=== PATIENT | female | born 1985 | race African-American/Black ===

== ENCOUNTER 2020-08-23 08:06 | Emergency (ER) | payer OTHER, SELFPAY ==
--- NOTE | 2020-08-23 08:19 | ED.FEMALEGU ---
HPI - Female Genitourinary General Chief complaint: Urogenital-Female Stated complaint: uti Source: patient Mode of arrival: ambulatory Limitations: no limitations History of Present Illness HPI Narrative: Patient is a 35-year-old female who presents with urinary complaints. She reports lower abdominal pain/pelvic pain, dysuria and blood when wiping. She reports symptoms x1 day. She denies fever, nausea, vomiting, vaginal discharge or risk for STDs. She reports history of UTI in the past. She denies all other complaints at this time. MD elicited complaint: UTI Related Data Allergies Allergy/AdvReac Type Severity Reaction Status Date / Time latex Allergy Other Verified 08/23/20 08:19 Review of Systems Review of Systems: Narrative: CONSTITUTIONAL: Denies fever, chills, or sweats. EYES: Denies visual changes, redness, or discharge. ENT: Denies rhinorrhea, congestion, sore throat, or otalgia. CARDIOVASCULAR: Denies chest pain, palpitations, or edema. RESPIRATORY: Denies cough or dyspnea. GASTROINTESTINAL: Denies abdominal pain, nausea, vomiting, or diarrhea. GENITOURINARY: Reports dysuria and blood when wiping, reports pelvic pain. SKIN: Denies rash or itching. MUSCULOSKELETAL: Denies back pain, joint pain, or myalgia. NEUROLOGIC: Denies headache, numbness, dizziness, or weakness. PSYCHIATRIC: Denies anxiety or depression. [facility] Past Medical History Medical History Blood transfusion complicating After C section HTN (hypertension) Mild after 3 child per chart Large for gestational age fetus hemorrhage induced hypertension Surgical History Surgical History H/O: Family History Family History (Updated 08/23/20 @ 08:31 by ELIZ Da Silva) Other No significant family history Social History Social History Smoking status: Never smoker Alcohol intake: current Alcohol use details: Occasional Substance use: never Living arrangements: with family Gender identity (if verbalized by the patient): Female Comments At the time of signature, I have reviewed and agree with nursing past medical, surgical, social, and family history unless otherwise noted. Please see nursing chart for further information. There is no relevant family history pertinent to the presenting complaint. Exam Narrative: Exam Narrative: GENERAL: Well-appearing, well-nourished, and in no acute distress. HEAD: Normocephalic, atraumatic. EYES: EOMI. No redness or drainage. Conjunctiva are normal. ENT: Mucous membranes pink and moist. CHEST: No respiratory distress. HEART: Regular rate and rhythm. GI: Soft, nontender without rebound, or guarding. No distention. EXTREMITIES: Normal range of motion. No edema. SKIN: Warm, dry, no rash. NEURO: No focal deficits. Alert and oriented x3. Gait steady. PSYCH: Normal affect. No signs of depression or anxiety. Course Vital Signs Vital signs: Vital Signs Temperature 36.3 C L 08/23/20 08:24 Pulse Rate 75 08/23/20 08:24 Respiratory Rate 16 08/23/20 08:24 Blood Pressure 161/92 H 08/23/20 08:24 Pulse Oximetry 99 08/23/20 08:24 Temperature 36.3 C L 08/23/20 08:24 Pulse Rate 75 08/23/20 08:24 Respiratory Rate 16 08/23/20 08:24 Blood Pressure 161/92 H 08/23/20 08:24 Pulse Oximetry 99 08/23/20 08:24 Reviewed-patient is informed that they may have pre-hypertension or hypertension based on a blood pressure reading. I recommend the patient call the primary care provider listed on their discharge instructions or a physician of their choice this week to arrange follow-up for further evaluation of possible pre-hypertension or hypertension. MDM - Female Genitourinary MDM Narrative Medical decision making narrative: Patient's UA shows leukocytes, nitrates
[2020-08-23 08:24] VITALS: BP 161/92; PULSE 75; RESP 16; TEMP 36.3; O2SAT 99
== END 2020-08-23 08:42 | disposition home or self-care (01) ==
PROVIDERS: Emergency Provider Nurse Practitioner
DX: N39.0 Urinary tract infection, site not specified (principal); I10 Essential (primary) hypertension
CPT/HCPCS: 81003; 87077; 87086; 87088; 87186; 99213; G0463

== ENCOUNTER 2020-10-26 09:32 | Emergency (ER) | payer OTHER, SELFPAY ==
[2020-10-26 09:51] VITALS: BP 156/96; PULSE 68; RESP 16; TEMP 36.9; O2SAT 99
--- NOTE | 2020-10-26 09:51 | ED.FEMALEGU ---
HPI - Female Genitourinary General Chief complaint: Urogenital-Female Stated complaint: UTI Time Seen by Provider: 10/26/20 09:35 Source: patient Mode of arrival: ambulatory Limitations: no limitations History of Present Illness HPI Narrative: 35-year-old female presents to [facility] with complaints of urinary burning, frequency, urgency and hematuria for the past 3 days. Patient reports history of urinary tract infections. Patient's last UTI was in August and patient was treated with 5 days of Macrobid at that time. Patient reports that symptoms did completely resolve after completing antibiotic. Patient denies vaginal discharge, concern for STDs, fever, body aches, chills, nausea, vomiting, diarrhea, flank pain or abdominal pains. Last menstrual period was October 08 2020. MD elicited complaint: dysuria and UTI Onset (ago): day(s) (3) Vaginal discharge: none Vaginal bleeding: none Urinary symptoms: Dysuria, Urgency, Frequency and Hematuria Exacerbating factors: none Relieving factors: none Associated symptoms: denies other symptoms Treatment prior to arrival: none Patient : No Related Data Allergies Allergy/AdvReac Type Severity Reaction Status Date / Time latex Allergy Other Verified 10/26/20 09:47 Review of Systems Constitutional: Constitutional: Denies chills and Denies fatigue ENT: Denies dysphagia, Denies dizziness, Denies epistaxis and Denies sore throat Cardiovascular: Cardiovascular: Denies chest pain, Denies rapid heart rate and Denies slow heart rate Respiratory: Respiratory: Denies cough and Denies wheezing Gastrointestinal: Gastrointestinal: Denies abdominal pain, Denies constipation, Denies diarrhea, Denies nausea and Denies vomiting Genitourinary: Genitourinary: Denies abnormal vaginal bleeding, Reports hematuria, Reports nocturia, Denies genital lesions, Reports dysuria, Denies pelvic pain, Denies flank pain and Denies vaginal discharge Endocrine: Endocrine: Denies fatigue PMFSH Past Medical History Medical History Blood transfusion complicating After C section HTN (hypertension) Mild after 3 child per chart Large for gestational age fetus hemorrhage induced hypertension Surgical History Surgical History H/O: Family History Family History Other No significant family history Social History Social History Smoking status: Never smoker Alcohol intake: current Substance use: never Gender identity (if verbalized by the patient): Female Comments At time of signature, I agree with nursing past medical, surgical, social and family history. There is no relevant family history pertinent to the presenting complaint. Exam Const: General: no acute distress and alert Nutritional Appearance: well nourished Orientation/consciousness: patient oriented x3 Neck: Neck: normal visual inspection Resp: Effort & Inspection: normal respiratory effort, not labored and not tachypneic Auscultation: clear to auscultation bilaterally, no rales, no rhonchi and no wheezes Cardio: Rate: regular rate, not bradycardic and not tachycardic Rhythm: regular rhythm Heart sounds: no murmurs : General: Yes bladder normal to palpation and Yes no CVA tenderness Other: vaginal examination deferred. Back/Spine/Pelvis: Back: no CVA tenderness Skin: General skin exam: normal color Rashes: no rashes Wounds: no wounds Neuro: General: patient oriented x3 and moves all extremities Speech: normal speech Extrem: General: normal to inspection Psych: Mental Status: mental status grossly normal Affect: normal affect Attitude: cooperative Thought content: Yes Normal thought content present Judgement: Good judgement present (Psych) [facility]
== END 2020-10-26 10:00 | disposition home or self-care (01) ==
PROVIDERS: Emergency Provider Nurse Practitioner Family
DX: N30.01 Acute cystitis with hematuria (principal)
CPT/HCPCS: 81003; 87077; 87086; 87088; 87186; 99213; G0463

== ENCOUNTER 2021-01-19 08:07 | Emergency (ER) | payer OTHER, SELFPAY ==
[2021-01-19 08:16] VITALS: BP 161/94; PULSE 63; RESP 18; TEMP 36.8; O2SAT 100
--- NOTE | 2021-01-19 08:18 | PC.NURSE ---
While taking blood pressure patient would not keep arm still.
--- NOTE | 2021-01-19 08:44 | ED.URI ---
HPI - URI/Sore Throat General Chief Complaint: Upper Respiratory Infection Stated Complaint: sore throat Time Seen by Provider: 01/19/21 08:36 Source: patient and RN notes reviewed Mode of arrival: ambulatory Limitations: no limitations History of Present Illness HPI Narrative: Patient presents today complaint of sore throat since yesterday, right greater than left. Pain increases with swallowing. She currently rates pain 9/10 and has been taking Tylenol without much relief. Denies any additional symptoms to include cough, congestion, fever, shortness of breath, or difficulty swallowing. Denies any sick contacts. MD elicited complaint: sore throat Related Data Allergies Allergy/AdvReac Type Severity Reaction Status Date / Time latex Allergy Other Verified 10/26/20 09:47 Review of Systems Review of Systems: CONSTITUTIONAL: Denies body aches, fever, chills, or sweats. EYES: Denies visual changes, redness, or discharge. ENT: Denies rhinorrhea, congestion, or otalgia.+ Sore throat CARDIOVASCULAR: Denies chest pain, palpitations, or edema. RESPIRATORY: Denies cough or dyspnea. GASTROINTESTINAL: Denies abdominal pain, nausea, vomiting, or diarrhea. GENITOURINARY: Denies dysuria or hematuria. SKIN: Denies rash, itching, or wounds. MUSCULOSKELETAL: Denies back pain, joint pain, or myalgia. NEUROLOGIC: Denies headache, numbness, tingling, or weakness. PSYCH: Denies depression or anxiety. [facility] Past Medical History Medical History Blood transfusion complicating After C section HTN (hypertension) Mild after 3 child per chart Large for gestational age fetus hemorrhage induced hypertension Surgical History Surgical History H/O: Family History Family History Other No significant family history Social History Social History Smoking status: Never smoker Alcohol intake: current Alcohol use details: Occasional Substance use: never Gender identity (if verbalized by the patient): Female Comments At time of signature, I have reviewed and agree with nursing past medical, surgical, social and family history unless otherwise noted. Please see nursing chart for further information. There is no relevant family history pertinent to the presenting complaint Exam Narrative: GENERAL: Well-appearing, well-nourished, and in no acute distress. HEAD: Normocephalic, atraumatic. EYES: EOMI. No redness or drainage. Conjunctivae normal. ENT: Mucous membranes pink and moist. Nares clear. No rhinorrhea. TMs normal bilaterally. Throat very mildly erythematous. Mild edema, Right greater than left. Uvula midline. NECK: Normal AROM. Supple. Right anterior cervical chain lymphadenopathy. CHEST: No respiratory distress. Clear to auscultation. HEART: Regular rate and rhythm. No murmur appreciated. Normal peripheral pulses. EXTREMITIES: Normal range of motion. No edema. SKIN: Warm, dry, no rash. Capillary refill normal. Normal skin turgor. NEURO: No focal deficits. Alert and oriented x3. Gait steady. PSYCH: Normal affect. No signs of depression or anxiety. Course Vital Signs Vital signs: Vital Signs Temperature 98.2 F 01/19/21 08:16 Pulse Rate 63 01/19/21 08:16 Respiratory Rate 18 01/19/21 08:16 Blood Pressure 161/94 H 01/19/21 08:16 Pulse Oximetry 100 01/19/21 08:16 Temperature 98.2 F 01/19/21 08:16 Pulse Rate 63 01/19/21 08:16 Respiratory Rate 18 01/19/21 08:16 Blood Pressure 161/94 H 01/19/21 08:16 Pulse Oximetry 100 01/19/21 08:16 Reviewed. Pt has been instructed to follow up with her PCP regarding her elevated blood pressure today. MDM - URI/Sore Throat Differential Diagnosis Differential diag
== END 2021-01-19 08:51 | disposition home or self-care (01) ==
PROVIDERS: Emergency Provider Nurse Practitioner
DX: J02.9 Acute pharyngitis, unspecified (principal)
CPT/HCPCS: 87081; 87880; 99213; G0463

== ENCOUNTER 2022-10-10 16:34 | Emergency (ER) | payer OTHER, MEDICAID, SELFPAY ==
--- NOTE | ~2022-10-10 | XR_ITS ---
EXAMINATION: XR shoulder RT min 2V DATE: 10/10/2022 19:57 INDICATION: Right shoulder pain. TECHNIQUE: 4 views of right shoulder were obtained. COMPARISON: None. FINDINGS: Bone alignment is normal. No fracture. Joint spaces are normal. IMPRESSION: 1. Normal right shoulder. Reviewed, dictated and finalized at location E. IMPRESSION: 1. Normal right shoulder.
--- NOTE | ~2022-10-10 | CT_ITS ---
EXAMINATION: CT cervical spine wo con DATE: 10/10/2022 19:54 INDICATION: Right neck pain. Cervical radiculopathy. TECHNIQUE: Computed tomography (CT) of the cervical spine was performed without intravenous contrast. Automated exposure control and iterative reconstruction technique were employed. The dose-length pro duct was 314.53 mGy-cm. COMPARISON: None FINDINGS: There are blebs at the lung apices. There is mild scarring at right lung apex. There is kyp hosis of cervical spine. Vertebral body heights are normal. There is mildly decreased disc height at C5-C6. The following disc levels are specifically discussed: C2-C3: There is no uncovertebral joint osteoarthritis. There is no facet joint osteoarthritis. There is no neural foraminal stenosis. There is no central canal stenosis. C3-C4: There is no uncovertebral joint osteoarthritis. There is mild right facet joint osteoarthritis . There is no neural foraminal stenosis. There is no central canal stenosis. C4-C5: There is no uncovertebral joint osteoarthritis. There is no facet joint osteoarthritis. There is no neural foraminal stenosis. There is no central canal stenosis. C5-C6: There is mild bilateral uncovertebral joint osteoarthritis. There is no facet joint osteoarthr itis. There is no neural foraminal stenosis. There is mild central canal stenosis. C6-C7: There is no uncovertebral joint osteoarthritis. There is severe right and moderate left facet joint osteoarthritis. There is mild right neural foraminal stenosis. There is mild central canal sten osis. C7-T1: There is no uncovertebral joint osteoarthritis. There is severe bilateral facet joint osteoart hritis. There is mild bilateral neural foraminal stenosis. There is no central canal stenosis. IMPRESSION: 1. No fracture. 2. Mild cervical spondylosis. Reviewed, dictated and finalized at location E.
[2022-10-10 16:43] VITALS: BP 185/100; PULSE 66; RESP 16; O2SAT 100
--- NOTE | 2022-10-10 18:42 | PC.NURSE ---
Pt ambulates into ED c/o right shoulder and arm pain. Pt states Friday pt awoke and had right shoulder pain that was radiating down her right arm into her hand. Pt states she has had pain similar to this in the past after sleeping on the shoulder wrong, but that pain was not as intense and resolved after exercises, stretching, and tylenol. Pt states this pain has increased and tylenol is not effecting it. States the pain is also more sharp and she is starting to notice swelling in her right hand with some tingling in her right finger tips. Pt denies any recent trauma or injuries. No medical history and no medications.
[2022-10-10] MEDS: CYCLOBENZAPRINE HCL 5 MG TABLET PO (19:42)
[2022-10-10] MEDS: KETOROLAC (*BKC) 60 MG/2 ML VIAL IM (19:43)
--- NOTE | 2022-10-10 20:11 | ED.UPPEXIN ---
HPI - Extremity Injury (Upper) General Chief Complaint: Extremity Injury, Upper Stated Complaint: right arm pain Time Seen by Provider: 10/10/22 18:51 Source: patient Mode of arrival: ambulatory Limitations: no limitations History of Present Illness HPI narrative: Patient is a 37-year-old female who presents to the ED with report of right-sided neck and right upper extremity pain. Patient reports she experienced a pinched nerve in her right-sided neck and shoulder last January, which she attributed to sleeping with new pillows at that time. She was able to perform exercises and eventually found relief of the pain. She developed recurrent pain again 3 days ago. She denies any injury or abnormal sleeping patterns. She complains of pain from her right-sided neck to her right upper back, down her right shoulder, down her right arm. She states the pain does seem to originate from her right neck and shoots down her arm. She does report some tingling in her lower right arm. Denies any numbness. Denies weakness. Denies chest pain or difficulty breathing. She has been taking Tylenol without much relief. Related Data Allergies Allergy/AdvReac Type Severity Reaction Status Date / Time latex Allergy Other Verified 10/10/22 18:42 Review of Systems Review of Systems: CONSTITUTIONAL: Denies fever, chills, or sweats. CARDIOVASCULAR: Denies chest pain. RESPIRATORY: Denies dyspnea. MUSCULOSKELETAL: See HPI. NEUROLOGIC: See HPI. All systems reviewed & are unremarkable except as noted in HPI and below PMFSH Past Medical History Medical History Blood transfusion complicating After C section HTN (hypertension) Mild after 3 child per chart Large for gestational age fetus hemorrhage induced hypertension Surgical History Surgical History H/O: Family History Family History Other No significant family history Social History Social History Smoking status: Never smoker Alcohol intake: current Alcohol use details: Occasional Substance use: never Living arrangements: with family Gender identity (if verbalized by the patient): Female Exam Narrative: GENERAL: Well appearing, well-nourished, non-toxic, in no acute distress. HEAD: Normocephalic, atraumatic. NECK: Supple. No adenopathy, no masses. Full range of motion of neck. No midline spinal tenderness. Fairly significant right-sided paraspinal muscular tenderness, reproducing pain. TTP along R superior trapezius anatomy, again reproducing pain. RESPIRATORY: Airway patent, respirations nonlabored. Clear to auscultation bilaterally, no rales, rhonchi, wheezing. CARDIOVASCULAR: Regular rate and rhythm without murmurs, rubs, or gallops. Radial pulses 2+ and equal bilaterally. MUSCULOSKELETAL: Moves all extremities. No gross deformities. No midline thoracic or lumbar spinal tenderness. Tenderness to palpation throughout right upper trapezius region and diffusely throughout right superior/posterior shoulder region. Sensation intact. Full range of motion of right upper extremity, but discomfort with this. Equal carpet inspector finished strength bilaterally. No significant tenderness over R elbow or wrist joint. SKIN: Warm, dry, normal color. No rashes. NEURO: A&O X3. Speech clear. Cranial nerves II-XII grossly intact. Steady gait. No ataxic movements. PSYCHIATRIC: Appropriate mood and affect. Normal interaction. Course Vital Signs Vital signs: Vital Signs Pulse Rate 66 10/10/22 16:43 Respiratory Rate 16 10/10/22 16:43 Blood Pressure 185/100 H 10/10/22 16:43 Pulse Oximetry 100 10/10/22 16:43 Oxygen Delivery Room Air 10/10/22 16:43 Temperature 98.7 F 10/10/22 21:58 Pulse Rate 57 L 0
[2022-10-10 21:58] VITALS: BP 174/102; PULSE 57; RESP 15; TEMP 37.1; O2SAT 100
== END 2022-10-10 21:59 | disposition home or self-care (01) ==
PROVIDERS: Emergency Provider Physician Assistant
DX: S46.811A Strain of other muscles, fascia and tendons at shoulder and upper arm level, right arm, initial encounter (principal); M47.22 Other spondylosis with radiculopathy, cervical region; X58.XXXA Exposure to other specified factors, initial encounter
CPT/HCPCS: 72125; 73030; 96372; 99284; A9270; J1885

== ENCOUNTER 2023-01-08 17:47 | Emergency (ER) | payer OTHER, MEDICAID, SELFPAY ==
[2023-01-08 17:55] VITALS: BP 175/90; PULSE 60; RESP 14; TEMP 37.1; O2SAT 100
--- NOTE | 2023-01-08 18:33 | ED.EAR ---
HPI - Ear Problem General Chief complaint: Ear Stated complaint: Right Ear Irritation Time Seen by Provider: 01/08/23 18:30 Source: patient, RN notes reviewed and old records reviewed Mode of arrival: ambulatory Limitations: no limitations History of Present Illness HPI Narrative: 37 year old female who presents to [facility] care with complaints of right ear pain for one week duration with increased pain for the past 1.5 days with no drainage from her right ear noted or any tinnitus.. Patient denies any shortness of breath, denies any sinus congestion or drainage, denies any sore throat. Patient reports that she has had ear infections in the past last was several years ago. Patient reports that she has not had fever chills or sweats or any body aches.. Patient reports that she has taken some OTC eardrops for her discomfort MD Complaint: ear pain Location: right ear Duration: intermittent Severity: moderate Discharge from ear: Reports no Treatment prior to arrival: eardrops (OTC) Related Data Allergies Allergy/AdvReac Type Severity Reaction Status Date / Time latex Allergy Other Verified 10/10/22 18:42 Review of Systems Review of Systems: CONSTITUTIONAL: Denies malaise, chills, sweats, or fever. EYES: Denies visual changes, redness, or discharge. ENT: Reports no rhinorrhea, congestion, sinus pain, positive for right ear otalgia no sore throat. CARDIOVASCULAR: Denies chest pain, palpitations, or edema. RESPIRATORY: Reports no cough.? Denies dyspnea. GASTROINTESTINAL: Denies abdominal pain, nausea, vomiting, diarrhea SKIN: Denies rash or itching. MUSCULOSKELETAL: Denies myalgia. NEUROLOGIC: Denies headache. All systems reviewed & are unremarkable except as noted in HPI and below PMFSH Past Medical History Medical History Blood transfusion complicating After C section HTN (hypertension) Mild after 3 child per chart Large for gestational age fetus hemorrhage induced hypertension Surgical History Surgical History H/O: x3 Family History Family History Other No significant family history Social History Social History Smoking status: Never smoker Alcohol intake: current Alcohol use details: Occasional Substance use: never Living arrangements: with family Gender identity (if verbalized by the patient): Female Comments At time of signature, agree with nursing past medical, surgical, social and family history. There is no relevant family history pertinent to the presenting complaint Exam Narrative: GENERAL: Well-appearing, well-nourished, and in no acute distress. HEAD: Normocephalic EYES: PERRLA, conjunctivae clear ENT: Nares clear, turbinates edematous and erythematous, clear discharge. Mucous membranes moist.Right TM red, Left TM pearly moreno with dull light reflex bilaterally; no tragal tenderness. Oropharynx erythematous without lesions. Tonsils not enlarged and without exudate, no drooling, no hoarseness, no trismus, uvula midline. NECK: Supple. No lymphadenopathy CHEST: Clear to auscultation, breath sounds equal. No wheezing, rhonchi, rales, or stridor. No respiratory distress, speaks in full sentences.SAO2 100% on room air HEART: Regular rate and rhythm. No murmur heard. SKIN: Warm, dry, no rash. NEURO: Alert and oriented x3. PSYCH: Normal mood and affect Course Course Emergency Course: Patient is aware of diagnosis, understands and agrees to treatment plan.? Anticipatory guidance given.? Patient agrees to follow-up as directed and is aware of reasons to seek care at the emergency department. Portions of this record may have been created with voice recognition software Level of Care: Express
[2023-01-08 18:41] VITALS: BP 156/87
== END 2023-01-08 18:42 | disposition home or self-care (01) ==
PROVIDERS: Emergency Provider Registered Nurse
DX: H65.01 Acute serous otitis media, right ear (principal); I10 Essential (primary) hypertension
CPT/HCPCS: 99213; G0463

== ENCOUNTER 2023-02-14 08:16 | Emergency (ER) | payer OTHER, MEDICAID, SELFPAY ==
[2023-02-14 08:29] VITALS: BP 162/96; PULSE 65; RESP 16; TEMP 37; O2SAT 100
--- NOTE | 2023-02-14 09:03 | ED.FEMALEGU ---
HPI - Female Genitourinary General Chief complaint: Urogenital-Female Stated complaint: Vaginal Problems Time Seen by Provider: 02/14/23 08:55 Source: patient and RN notes reviewed Mode of arrival: ambulatory Limitations: no limitations History of Present Illness HPI Narrative: Patient presents today with a one-week history of thick white vaginal discharge that has no odor, and vaginal irritation. Denies itching or burning. Denies dyspareunia or vaginal bleeding. Denies concerns for sexually transmitted infections. Denies abdominal discomfort. She does not currently have an OBGYN. Patient has tried Monistat without relief. Related Data Allergies Allergy/AdvReac Type Severity Reaction Status Date / Time latex Allergy Other Verified 10/10/22 18:42 Review of Systems Review of Systems: CONSTITUTIONAL: Denies body aches, fever, chills, or sweats. EYES: Denies visual changes, redness, or discharge. ENT: Denies rhinorrhea, congestion, sore throat, or otalgia. CARDIOVASCULAR: Denies chest pain, palpitations, or edema. RESPIRATORY: Denies cough or dyspnea. GASTROINTESTINAL: Denies abdominal pain, nausea, vomiting, or diarrhea. GENITOURINARY: Denies dysuria or hematuria.+ vaginal discharge and irritation SKIN: Denies rash, itching, or wounds. MUSCULOSKELETAL: Denies back pain, joint pain, or myalgia. NEUROLOGIC: Denies headache, numbness, tingling, or weakness. PSYCH: Denies depression or anxiety. [facility] Past Medical History Medical History Blood transfusion complicating After C section HTN (hypertension) Mild after 3 child per chart Large for gestational age fetus hemorrhage induced hypertension Surgical History Surgical History H/O: x3 Family History Family History Other No significant family history Social History Social History Smoking status: Never smoker Alcohol intake: current Alcohol use details: Occasional Substance use: never Living arrangements: with family Gender identity (if verbalized by the patient): Female Comments At time of signature, I have reviewed and agree with nursing past medical, surgical, social and family history unless otherwise noted. Please see nursing chart for further information. There is no relevant family history pertinent to the presenting complaint Exam Narrative: GENERAL: Well-appearing, well-nourished, and in no acute distress. HEAD: Normocephalic, atraumatic. EYES: EOMI. No redness or drainage. Conjunctivae normal. ENT: Mucous membranes pink and moist. NECK: Normal AROM. CHEST: No respiratory distress. : Patient declines vaginal exam. EXTREMITIES: Normal range of motion. No edema. SKIN: Warm, dry, no rash. Capillary refill normal. Normal skin turgor. NEURO: No focal deficits. Alert and oriented x3. Gait steady. PSYCH: Normal affect. No signs of depression or anxiety. Course Course Level of Care: Express Care Visit Vital Signs Vital signs: Vital Signs Temperature 98.6 F 02/14/23 08:29 Pulse Rate 65 02/14/23 08:29 Respiratory Rate 16 02/14/23 08:29 Blood Pressure 162/96 H 02/14/23 08:29 Pulse Oximetry 100 02/14/23 08:29 Oxygen Delivery Room Air 02/14/23 08:29 Temperature 98.6 F 02/14/23 08:29 Pulse Rate 65 02/14/23 08:29 Respiratory Rate 16 02/14/23 08:29 Blood Pressure 162/96 H 02/14/23 08:29 Pulse Oximetry 100 02/14/23 08:29 Oxygen Delivery Room Air 02/14/23 08:29 Reviewed. Pt has been instructed to follow up with her PCP regarding her elevated blood pressure today. MDM - Female Genitourinary MDM Narrative Medical decision making narrative: Patient declines testing for gonorrhea, chlamydia, Tri
== END 2023-02-14 09:10 | disposition home or self-care (01) ==
PROVIDERS: Emergency Provider Nurse Practitioner
DX: N76.0 Acute vaginitis (principal); I10 Essential (primary) hypertension
CPT/HCPCS: 99213; G0463

== ENCOUNTER 2023-05-17 08:04 | Emergency (ER) | payer OTHER, MEDICAID, SELFPAY ==
[2023-05-17 08:14] VITALS: BP 160/100; PULSE 73; RESP 16; TEMP 35.9; O2SAT 99
--- NOTE | 2023-05-17 08:16 | ED.URI ---
HPI - URI/Sore Throat General Chief Complaint: Upper Respiratory Infection Stated Complaint: throat issue Time Seen by Provider: 05/17/23 08:16 Source: patient Mode of arrival: ambulatory Limitations: no limitations History of Present Illness HPI Narrative: 38-year-old female presents with complaint sore throat, nasal and sinus congestion, postnasal drainage for the past 3 weeks. Afebrile. Has tried several [id number] medications such as Mucinex and DayQuil without relief of her sore throat. Patient's blood pressure high today. Does not a primary care physician. Denies headache, chest pain and shortness of breath. All systems reviewed and negative except as noted above. Related Data Allergies Allergy/AdvReac Type Severity Reaction Status Date / Time latex Allergy Other Verified 05/17/23 08:19 Review of Systems Review of Systems: CONSTITUTIONAL: Denies fever, chills, or sweats. EYES: Denies visual changes, redness, or discharge. ENT: Reports rhinorrhea, congestion, sinus pressure,sore throat. Deniesotalgia. CARDIOVASCULAR: Denies chest pain, palpitations, or edema. RESPIRATORY: Denies cough or dyspnea. GASTROINTESTINAL: Denies abdominal pain, nausea, vomiting, or diarrhea. GENITOURINARY: Denies dysuria or hematuria. SKIN: Denies rash or itching. MUSCULOSKELETAL: Denies back pain, joint pain, or myalgia. NEUROLOGIC: Denies headache, numbness, or weakness. PSYCHIATRIC: Denies anxiety or depression. All other systems reviewed are negative, except as documented in HPI. [facility] Past Medical History Medical History Blood transfusion complicating After C section HTN (hypertension) Mild after 3 child per chart Large for gestational age fetus hemorrhage induced hypertension Surgical History Surgical History H/O: x3 Family History Family History Other No significant family history Social History Social History Smoking status: Never smoker Alcohol intake: current Alcohol use details: Occasional Substance use: never Living arrangements: with family Gender identity (if verbalized by the patient): Female Comments reviewed Exam Narrative: GENERAL: This is a well-nourished, well-developed patient, in no apparent distress. HEAD: normocephalic, atraumatic. EYES: PERRL. Sclera clear/white. Vision is grossly intact. EARS: External ears normal, auditory canals clear and without drainage, TMs normal without perforation. Hearing grossly intact. NOSE: External nose normal with clear nasal drainage, erythema and swelling to bilateral nares. THROAT: Mucous membranes moist, Tonsils 2+ bilaterally, erythematous and exudates. NECK: Neck supple, non-tender without lymphadenopathy, masses or thyromegaly. CARDIOVASCULAR: Regular rate and rhythm without murmurs, gallops, or rubs. RESPIRATORY: Clear to auscultation. Breath sounds equal bilaterally. No wheezes, rales, or rhonchi. SKIN: warm, Dry, intact with no suspicious lesions or rash, good texture and turgor. NEURO: awake, alert, and oriented to person, place and time. There were no obvious focal neurologic abnormalities. EXTREMITIES: No joint tenderness, effusion, or edema noted. Course Course Level of Care: Express Care Visit Vital Signs Vital signs: Vital Signs Temperature 35.9 C L 05/17/23 08:14 Pulse Rate 73 05/17/23 08:14 Respiratory Rate 16 05/17/23 08:14 Blood Pressure 160/100 H 05/17/23 08:14 Pulse Oximetry 99 05/17/23 08:14 Oxygen Delivery Room Air 05/17/23 08:14 Temperature 35.9 C L 05/17/23 08:14 Pulse Rate 73 05/17/23 08:14 Respiratory Rate 16 05/17/23 08:14 Blood Pressure 160/100 H 05/17/23 08:28 Pul
[2023-05-17 08:28] VITALS: BP 160/100
== END 2023-05-17 08:40 | disposition home or self-care (01) ==
PROVIDERS: Emergency Provider Nurse Practitioner Family
DX: J01.90 Acute sinusitis, unspecified (principal); R03.0 Elevated blood-pressure reading, without diagnosis of hypertension
CPT/HCPCS: 87081; 87880; 99213; G0463

== ENCOUNTER 2023-12-16 08:06 | Emergency (ER) | payer OTHER, SELFPAY ==
--- NOTE | 2023-12-16 08:07 | ED.FEMALEGU ---
HPI - Female Genitourinary General Chief complaint: Urogenital-Female Stated complaint: STD Testing Time Seen by Provider: 12/16/23 08:32 Source: patient and RN notes reviewed Mode of arrival: ambulatory Limitations: no limitations History of Present Illness HPI Narrative: 38-year-old female presents with concern for 1 week of lower abdominal discomfort and pink tinge on the toilet paper after she urinates. She denies any discharge in her underwear. She denies dysuria, frequency, urgency, back pain, nausea, vomiting, chills, fever. She reports your she has a new partner, she got tested 1 week after being with a new partner and the results were negative, she was not tested for trich. She reports her last bowel movement was this morning, she reports she does suffer from chronic constipation. She denies foul-smelling vaginal discharge. She has had a tubal ligation, her last menstrual cycle was 2 weeks ago. She denies pain in a sex MD elicited complaint: possible STD Related Data Allergies Allergy/AdvReac Type Severity Reaction Status Date / Time latex Allergy Other Verified 12/16/23 08:10 Review of Systems Review of Systems: CONSTITUTIONAL: Denies malaise, chills, sweats, or fever. CARDIOVASCULAR: Denies chest pain, palpitations, or edema. RESPIRATORY: Denies cough or dyspnea. GASTROINTESTINAL: Reports lower abdominal discomfort. Denies nausea, vomiting, diarrhea GENITOURINARY: Denies dysuria, frequency, urgency, suprapubic pressure. Denies flank pain or hematuria. Reports pain tinge on the toilet paper when she wipes SKIN: Denies rash or itching. MUSCULOSKELETAL: Denies back pain or myalgia. All systems reviewed & are unremarkable except as noted in HPI and below PMFSH Past Medical History Medical History Blood transfusion complicating After C section HTN (hypertension) Mild after 3 child per chart Large for gestational age fetus hemorrhage induced hypertension Surgical History Surgical History H/O: x3 Family History Family History Other No significant family history Social History Social History Smoking status: Never smoker Alcohol intake: current Alcohol use details: Occasional Substance use: never Living arrangements: with family Gender identity (if verbalized by the patient): Female Comments At time of signature, agree with nursing past medical, surgical, social and family history. There is no relevant family history pertinent to the presenting complaint Exam Narrative: GENERAL: Well-appearing, well-nourished, and in no acute distress. HEAD: Normocephalic. EYES: PERRLA, conjunctivae clear. NECK: Supple. No lymphadenopathy CHEST: Clear to auscultation. No respiratory distress. HEART: Regular rate and rhythm. ABDOMEN: Soft, nontender upon palpation, nondistended, normal active bowel sounds, no palpable or pulsatile masses, no guarding. No CVA tenderness SKIN: Warm, dry, no rash. NEURO: Alert and oriented x3. PSYCH: Normal mood and affect Course Course Emergency Course: Patient is aware of diagnosis, understands and agrees to treatment plan. Anticipatory guidance given. Patient agrees to follow-up as directed and is aware of reasons to seek care at the emergency department. Portions of this record may have been created with voice recognition software Level of Care: Express Care Visit Vital Signs Vital signs: Reviewed. MDM - Female Genitourinary MDM Narrative Medical decision making narrative: Patient was advised to call Dr. Monroe today to follow-up regarding her blood pressure Exam findings and UA show no acute concerns or changes; patient is non-toxic appearing and is in no distres
[2023-12-16 08:27] VITALS: BP 179/109; PULSE 57; RESP 16; TEMP 36.3; O2SAT 100
[2023-12-16 08:29] LABS: EDUAAPPEAR Clear; EDUABILI Negative; EDUABLOOD Trace; EDUACOLOR1 Yellow; EDUAGLUCOSE Negative; EDUAKETONE Negative; EDUALEUKO Negative; EDUANITRATE Negative; EDUAPH 6.5; EDUAPROTEIN Negative; EDUASPGRAVITY 1.025
[2023-12-16 12:41] LABS: Trichomonas Vag PCR NOT DETECTED (NOT DETECTE)
[2023-12-16 12:43] LABS: Chlamydia trachomatis NOT DETECTED (NOT DETECTE); Neisseria gonorrhoeae PCR NOT DETECTED (NOT DETECTE)
== END 2023-12-16 08:47 | disposition home or self-care (01) ==
PROVIDERS: Emergency Provider Nurse Practitioner
DX: Z11.3 Encounter for screening for infections with a predominantly sexual mode of transmission (principal); R03.0 Elevated blood-pressure reading, without diagnosis of hypertension
CPT/HCPCS: 81003; 87086; 87088; 87491; 87591; 87661; 99214; G0463

== ENCOUNTER 2025-04-14 08:12 | Emergency (ER) | payer OTHER, SELFPAY ==
--- NOTE | 2025-04-14 08:13 | ED_ITS ---
HPI - URI/Sore Throat General Chief Complaint: Upper Respiratory Infection Stated Complaint: Sore Throat Time Seen by Provider: 04/14/25 08:12 Source: patient Mode of arrival: ambulatory Limitations: no limitations History of Present Illness HPI Narrative: Patient is a 40-year-old female who presents with sore throat for 2 days. Patient is also hoarse. States she feels postnasal drainage but does not feel congested. This denies any fever, chills, nausea, vomiting, diarrhea, cough, ear pain. Related Data Home Medications ?Medication ?Instructions ?Recorded ?Confirmed ?Last Taken ?Type No Home Medications 04/14/25 04/14/25 U nknown History Allergies Allergy/AdvReac Type Severity Reaction Status Date / Time latex Allergy Other Verified 04/14/25 08:24 Review of Systems Review of Systems: All systems reviewed & are unremarkable except as noted in HPI and below Constitutional: Constitutional: Denies chills, Denies fatigue, Denies fever(s), Denies headache(s), Denies malaise and Denies weakness Eyes: Eyes: Denies blurry vision, Denies itchy eyes and Denies loss of vision ENT: Denies otalgia, Denies headache(s), Reports hoarseness, Denies nasal congestion, Denies sinus pain and Reports sore throat Cardiovascular: Cardiovascular: Denies chest pain, Denies irregular heart rhythm and Denies dyspnea Respiratory: Respiratory: Denies cough and Denies dyspnea Gastrointestinal: Gastrointestinal: Denies abdominal pain, Denies diarrhea, Denies nausea and Denies vomiting Musculoskeletal: Musculoskeletal: Denies back pain, Denies myalgias and Denies arthralgias Integumentary/Breasts: Skin/Breast: Denies pruritus and Denies rash Neurologic: Denies headache(s), Denies loss of vision and Denies weakness Psychiatric: Psychiatric: Reports no additional psychiatric complaints Endocrine: Endocrine: Denies fatigue Allergic/Immunologic: Allergic/Immunologic: Denies itchy eyes PMFSH Past Medical History Medical History Blood transfusion complicating After C section Large for gestational age fetus hemorrhage induced hypertension HTN (hypertension) Mild after 3 child per chart Surgical History Surgical History H/O: x3 Family History Family History Other No significant family history Social History Social History Smoking status: Never smoker Alcohol intake: current Alcohol use details: Occasional Substance use: never Living arrangements: with family Gender identity (if verbalized by the patient): Female Comments At time of signature, agree with nursing past medical, surgical, social and family history. There is no relevant family history pertinent to the presenting complaint. Exam Const: General: cooperative, healthy appearing, comfortable, no acute distress and well nourished Nutritional Appearance: well nourished Orientation/consciousness: patient oriented x3 Limitations: no limitations HENMT: Head: normal to inspection, normocephalic and atraumatic Ears: hearing grossly normal bilaterally, external ears normal, TM's normal liliana aterally, EAC's normal and no periauricular adenopathy Face/Nose/Sinus: Normal external nose present, Abnormal mucous membranes and turbinates present erythematous bilateral and diffuse, normal facial exam, sinuses nontender and face symmetric Face and sinus: normal facial exam, sinuses nontender and face symmetric Mouth: Yes Normal oral and palatal mucosa present, Yes lip normal, Yes tongue normal, Yes Normal salivary glands and ducts present, Yes oropharynx normal and Yes moist mucous membranes Teeth and gingiva: dentition normal Throat: posterior oropharynx normal, uvula midline and abnormal tonsil bilateral hypertrophy 2+ and pitting Eyes: General: appearance normal, both eyes and all related structures Alignment and Position: alignment normal and position normal Periorbital: periorbital findings normal Eyelids: eyelids normal Pupils: Equal, round and reactive pupils present Neck: Neck: normal visual inspection, full ROM, no lymphadenopathy and supple Chest: Chest palpation & inspection: normal inspection of the chest and normal palpation of entire chest wall Resp: Effort & Inspection: normal respiratory effort and able to speak in complete sentences Auscultation: clear to auscultation bilaterally, no crackles, no rales, no rhonchi and no wheezes Cardio: Rate: regular rate Rhythm: regular rhythm Heart sounds: S1 normal heart sound present and S2 normal heart sound present GI: Inspection: normal to inspection Skin: General skin exam: normal color and no rashes or lesions noted Neuro: General: patient oriented x3 and moves all extremities Cranial nerves: Yes Equal, round and reactive pupils present Speech: normal speech Gait exam (Neuro): Normal gait present Extrem: General: normal to inspection, full ROM and no edema Psych: Appearance: grossly normal and well kempt Mental Status: mental status grossly normal Speech and movement: Normal speech and movement present Affect: normal affect Attitude: cooperative Thought process: Normal thought process present Course Course Emergency Course: Discharge instructions reviewed with patient, as well as provided in writing per nursing staff. The instructions also include specific and strict return/GO TO THE ER as well as f/u information. All questions have been answered, and the patient deny any further questions with discharge and discharge plan. Portions of this record may have been created with voice recognition software Level of Care: Express Care Visit Vital Signs Vital signs: Vital Signs Temperature 36.6 C 04/14/25 08:16 Pulse Rate 72 04/14/25 08:16 Respiratory Rate 16 04/14/25 08:16 Blood Pressure 162/85 H 04/14/25 08:16 Pulse Oximetry 100 04/14/25 08:16 Oxygen Delivery Room Air 04/14/25 08:16 Temperature 36.6 C 04/14/25 08:16 Pulse Rate 72 04/14/25 08:16 Respiratory Rate 16 04/14/25 08:16 Blood Pressure 162/85 H 04/14/25 08:16 Pulse Oximetry 100 04/14/25 08:16 Oxygen Delivery Room Air 04/14/25 08:16 Reviewed MDM - URI/Sore Throat MDM Narrative Medical decision making narrative: Pt well hydrated appearing, in no respiratory distress, hemodynamically stable. Recommend supportive care. The patient is stable at time of discharge the clinical impression was discussed and the patient was given the opportunity to ask questions, which were addressed as completely as possible given the i nformation available at present. Anticipatory guidance and return to care precautions were discussed and the importance of primary care follow-up was stressed and encouraged. The patient voiced understanding of the plan, indications to return, and the need for follow-up. Exam findings show no acute concerns or changes Patient is appropriate for outpatient treatment and follow-up. Differential diagnosis considered: Maguire virus, strep pharyngitis, allergic rhinitis, upper respiratory tract infection, sinusitis, rhinosinusitis, nasopharyngitis. viral pharyngitis, otitis media, otitis externa, otitis effusion, foreign body, cerumen impaction, viral syndrome, and influenza.? Medical Records Attestation: I reviewed the patient's medical records. Lab Data Attestation: I reviewed the patient's lab results. Labs: Lab Results 04/14/25 Range/Units 08:28 POC Grp A Strep Screen Negative (Negative) Discharge Plan Discharge Clinical Impression: Pharyngitis Qualifiers: Pharyngitis/tonsillitis etiology: unspecified etiology Qualified Code(s): J02.9 - Acute pharyngitis, unspecified Patient Disposition: Home Condition: Stable Instructions: Pharyngitis (ED) Additional Instructions: Your rapid strep swab was negative today at [facility]. A throat culture will be sent to the laboratory for further testing. If the test is positive, you will receive a phone call within 48 hours and an appropriate antibiotic will be initiated at that time. Your symptoms are likely due to a viral illness, which is not treated with antibiotics. Viral symptoms can be present for up to a few weeks. -For pain/fever, you may take: Tylenol 650-1000mg by mouth every 4-6 hours. Do not exceed 4000mg in 24 hours. Advil (Ibuprofen) 600 mg by mouth every 6 hours. Do not exceed 2400mg in 24 hours. 8 AM: Tylenol 11 AM: Ibuprofen 2 PM: Tylenol 5 PM: Ibuprofen 8 PM: Tylenol 11 PM: Ibuprofen 2 AM: Tylenol 5 AM: Ibuprofen -Antihistamine medication such as Benadryl/Zyrtec at night and Claritin/Jess during the day can help improve symptoms. -Use Flonase twice a day for 5 days then daily to help reduce the inflammation and dry up your sinuses. -Eat and drink things that are easy to swallow, like tea or soup, or popsicles. -Oral rinses such as: Salt water gargles and/or may use topical anesthetic (eg. Chloraseptic spray) or lozenges to relieve dryness or throat pain). -Frequent hand washing or hand take off worker is one of the best ways to prevent spread of infection. -Using a vaporizer or humidifier at night will also help thin secretions and help with coughing up phlegm. Call your Primary Care Doctor and make a follow-up appointment in 3 days. If your cough worsens, you develop a fever greater than 103, you develop shaking chills, a fast heartbeat, trouble breathing and/or feel you are are breathing much faster than usual, call your Primary Care Doctor or go to the ER. Your blood pressure was elevated above 120/80 today at Urgent Care. This puts you above the threshold for follow up visit with a primary care provider. High blood pressure does not usually cause any symptoms, however it may lead to kidney failure, stroke, heart disease just to name a few if untreated . Many people are anxious when seeing a provider or nurse. As a result, you are not diagnosed with hypertension at this time unless your blood pressure is persistently high at two office visits at least one week apart. Some things that can help lower blood pressure are lifestyle modifications, such as light exercise, decreased salt in diet, and weight loss. It is important to follow up with a PCP about this within 1 week. If you are having a hard time finding a physician please call our [facility] liaison at [phone]. Patient Language: Croatian Prescriptions: No Action No Home Medications Follow-up/Referrals: Suresh Maxwell MD [Physician, Family Practice] - 3 Days Time of Disposition: 08:41
[2025-04-14 08:16] VITALS: BP 162/85; PULSE 72; RESP 16; TEMP 36.6; O2SAT 100
[2025-04-14 08:32] LABS: EDSTREPNEGPOS1 Negative (Negative)
== END 2025-04-14 08:46 | disposition home or self-care (01) ==
PROVIDERS: Emergency Provider Nurse Practitioner Family
DX: J02.9 Acute pharyngitis, unspecified (principal); I10 Essential (primary) hypertension
CPT/HCPCS: 87081; 87880; 99213; G0463